=== PATIENT | female | born 1970 | race Caucasian/White ===

== ENCOUNTER 2019-03-22 19:30 | Emergency (ER) | payer BC, OTHER ==
[2019-03-22 19:49] VITALS: BP 159/92; PULSE 73; TEMP 98.5; BMI 23.3
[2019-03-22] MEDS ORDERED: IBUPROFEN 400 MG TABLET (FP) PO ONE ×2 (20:18→20:21)
== END 2019-03-22 20:23 | disposition home or self-care (01) ==
LOC: FER 19:30
DX: M54.5 Low back pain (principal); Y07.03 Male partner, perpetrator of maltreatment and neglect; Y93.89 Activity, other specified; Y92.000 Kitchen of unspecified non-institutional (private) residence as the place of occurrence of the external cause
CPT/HCPCS: 99281-25